=== PATIENT | male | born 1995 | race Caucasian/White ===

== ENCOUNTER 2016-06-06 12:30 | Emergency (ER) | payer OTHER ==
--- NOTE | ~2016-06-06 | CR142 ---
[facility] A Service of [facility] & [facility] RADIOLOGY TEXT RESULTS PATIENT: TIA MILES LOCATION: CFTX : [birth year] UNIT #: [id number] AGE: [address]: Cass Pina APRN SEX: M ORDER DR: [id number] [facility] [address] [place], [place] [address] [id number] E MR#: [id number] Acc #: [id number] NAME: TIA MILES JR : 1995 SEX: M STUDY DATE/TIME: 06/06/2016 12:37 UNIT: CFTX ROOM: STUDY DESCRIPTION: CR Hand Min 3 Views Rt Attending Physician: Cass Pina A.P.R.N. Ordering Physician: Ed Justyn Mitchell M.D. [facility] REPORT This report is preliminary unless electronic signature is present EXAM Right hand, 3 views COMPARISON May 22, 2014 INDICATIONS 20-year-old male with right medial hand pain 1 day after smashing it in a car door. FINDINGS Bones are anatomically aligned. No evidence of acute fracture or significant degenerative change. No radiopaque foreign body. IMPRESSION Normal exam Dictated by... Mateo Archuleta M.D. THIS IS AN ELECTRONICALLY VERIFIED REPORT Mateo Archuleta M.D. at 06/09/2016 10:20 AM MATT/joe TD: 06/06/2016 23:35 JOB #: [id number] MEDICAL IMAGING REPORT Page 1 of 1 COPY
[~2016-06-06 12:30] MED LIST: AURALGAN EAR DR14 ML OT; BACTRIM DS TABL1 TA1 PO; BACTRIM DS TABL1 TAB PO; BACTROBAN22 GM TP; BENADRYL PO; ELIMITE60 GM TOP; IBUPROFEN PO; IBUPROFEN600 MG PO; IBUPROFEN800 MG PO; IMODIUM2 MG PO; KEFLEX PO; MEDROL PO; MOTRIN400 MG PO; MOTRIN600 MG PO; NASONEX17 GM; NO MEDICATIONS; OMEPRAZOLE20 M2 PO; OTC ALLERGY MED; PHENERGAN25 M1 DOB; PHENERGAN25 M1 PO; PREDNISONE PO; TRAMADOL HCL50 M1 PO; TYLENOL #3 PO; VOLTAREN75 MG PO; ZITHROMAX1 G/PKT PO; ZYRTEC PO
== END 2016-06-06 13:56 | disposition home or self-care (01) ==
LOC: CFTX 12:30
DX: S60.221A Contusion of right hand, initial encounter (principal); Z88.0 Allergy status to penicillin; F17.210 Nicotine dependence, cigarettes, uncomplicated; W23.0XXA Caught, crushed, jammed, or pinched between moving objects, initial encounter; Y92.009 Unspecified place in unspecified non-institutional (private) residence as the place of occurrence of the external cause
CPT/HCPCS: 29280; 73130; 99283

== ENCOUNTER 2016-10-19 17:18 | Emergency (ER) | payer OTHER ==
[~2016-10-19] VITALS: Ht 190.5 cm; Wt 104.3 kg
--- NOTE | ~2016-10-19 | CR181 ---
[facility] A Service of [facility] & [facility] RADIOLOGY TEXT RESULTS PATIENT: TIA MILES LOCATION: [place] : [birth year] UNIT #: [id number] AGE: [address]: Michelle Christensen SEX: M ORDER DR: [id number] [facility] [address] [place], [place] [address] [id number] E MR#: [id number] Acc #: [id number] NAME: TIA MILES : 1995 SEX: M STUDY DATE/TIME: 10/19/2016 18:13 UNIT: [place] ROOM: STUDY DESCRIPTION: CR Lumbar Spine 2 or 3 Views Attending Physician: Michelle Christensen Pa-C Ordering Physician: Michelle Christensen Pa-C [facility] REPORT This report is preliminary unless electronic signature is present EXAM Lumbar spine series dated 10/19/2016. COMPARISON CT abdomen and pelvis dated 11/26/2007. No prior lumbar spine studies. HISTORY Low back pain for 2 weeks. FINDINGS Three views of the lumbar spine were obtained. Mild anterior wedge compression deformity of L1 is noted with about 20% to 25% loss of height. It appears to be chronic without any obvious fracture line. Intervertebral disc heights are intact. Pre and paravertebral soft tissues are unremarkable. Dictated by... Bassem Vazquez M.D. THIS IS AN ELECTRONICALLY VERIFIED REPORT Bassem Vazquez M.D. at 10/21/2016 3:19 PM CPR/tmw TD: 10/20/2016 09:32 JOB #: [id number] MEDICAL IMAGING REPORT Page 1 of 1 COPY
== END 2016-10-19 19:07 | disposition home or self-care (01) ==
LOC: CFTX 17:18 → CED 17:18 → CFTX 18:25
DX: M54.5 Low back pain (principal); F17.210 Nicotine dependence, cigarettes, uncomplicated; Z88.0 Allergy status to penicillin; Z88.1 Allergy status to other antibiotic agents
CPT/HCPCS: 72100; 99283